=== PATIENT | female | born 1975 | race Caucasian/White ===

== ENCOUNTER 2017-04-05 18:43 | Observation (INO) | payer OTHER ==
[~2017-04-05] VITALS: Ht 165.1 cm; Wt 95.1 kg
[~2017-04-05 18:43] MED LIST: ALEVE220 M2 PO; AMBIEN5 MG PO; B-125000 MCG PO; BUTALB-APAP-CA1 EACH PO; CIPRO500 MG PO; CITALOPRAM HBR20 MG PO; COMPAZINE10 MG PO; CRANBERRY200 MG PO; Dilaudid PO; ELAVIL25 MG PO; FLOMAX0.4 MG PO; INDERAL60 MG PO; MAXALT10 MG PO; MECLIZINE HCL25 M3 PO; MEDROL DOSEPAK4 MG PO; MEGA MULTIVITA1 EAC2 PO; METHOCARBAMOL750 MG PO; NAPROXEN500 MG PO; NEURONTIN300 MG PO; PEPTO BISMOL240 ML PO; PERCOCET 5/31 TABLET PO; POTASSIUM GLUCO2 MEQ PO; PREVACID15 MG PO; PRILOSEC10 MG PO; PRILOSEC40 MG PO; PROMETHAZINE HC25 M1 PO; Percocet 7.5/325,End PO; SUMATRIPTAN SUC50 MG PO; TORADOL10 MG PO; TRAMADOL-ACETA1 EACH PO; ULTRAM50 MG PO; VALIUM5 MG PO; VITAMIN C1000 MG PO; VITAMIN D-32000 UNI1 PO; VITAMIN D1000 INTUN PO; ZOFRAN4 MG PO; ZOLPIDEM TARTRA10 MG PO
[2017-04-05 19:14] LABS: HEMATOCRIT 41.9 % (36.0-46.0); MCH 30.9 PG (29.0-34.0); MCHC 34.8 G/DL (30.0-36.0); MCV 88.6 FL (83-99); MEAN PLAT.VOLUME 9.3 uM^3 (9.5-12.4); PLATELET COUNT 350 K/uL (156-360); RBC DIS.WIDTH-CV 11.8 % (11.8-14.6); RBC DIS.WIDTH-SD 38.2 % (39-53); RED BLOOD COUNT 4.73 M/uL (3.80-5.20); WHITE BLOOD COUNT 6.9 K/uL (4.1-10.2)
[2017-04-05 19:22] LABS: CHLORIDE 104 mEq/L (99-109); POTASSIUM 3.6 mEq/L (3.7-5.4); SODIUM 140 mEq/L (136-147)
[2017-04-05 19:24] LABS: GLUCOSE 154 mg/dL (70-99)
[2017-04-05 19:25] LABS: ANION GAP 12 MEQ/L (2-14)
[2017-04-05 19:28] LABS: GFR ESTIMATE (CALCULATED) > 59 mL/min/
[2017-04-05 19:29] LABS: UREA NITROGEN (BUN) 8 mg/dL (9-23)
[2017-04-05 19:35] LABS: TROP-I INTERPRETATION NEGATIVE; TROPONIN-I < 0.01 ng/mL (0.0-0.30)
[2017-04-05 19:54] LABS: D-DIMER ELISA < 150.00 ng/mLDDU (<230)
[2017-04-05] MEDS ORDERED: FLUARIX QU60 MCG/0.4 IM (20:35)
[2017-04-05] MEDS ORDERED: VITAMIN D2000 UNIT PO (20:35)
[2017-04-05] MEDS ORDERED: IMITREX25 MG PO (20:36)
[2017-04-05] MEDS ORDERED: IMITREX100 MG PO (20:36)
[2017-04-05] MEDS ORDERED: SUMATRIPTA4 MG/0.5 M SC (20:36)
[2017-04-05] MEDS ORDERED: ELAVIL100 MG PO (20:37)
[2017-04-05] MEDS ORDERED: ATARAX,VISTARIL25 MG PO (20:37)
[2017-04-05] MEDS ORDERED: VOLTAREN50 MG PO (20:37)
[2017-04-05] MEDS ORDERED: GAS-X125 MG PO (20:38)
[2017-04-05] MEDS ORDERED: LEVSIN-SL0.125 MG PO (20:38)
[2017-04-05] MEDS ORDERED: IMODIUM A-D2 M2 PO (20:38)
[2017-04-05] MEDS ORDERED: APRESOLINE10 MG PO (20:38)
[2017-04-05] MEDS ORDERED: PEPTO BISMOL240 ML PO (20:39)
[2017-04-05] MEDS ORDERED: MECLIZINE HCL25 MG PO (20:39)
[2017-04-05] MEDS ORDERED: KETOCONAZOLE120 ML TP (20:39)
[2017-04-05 21:57] VITALS: BP 169/93
[2017-04-05 23:51] VITALS: BP 155/84
[2017-04-06 03:46] VITALS: BP 141/91
[2017-04-06 05:28] LABS: TROP-I INTERPRETATION NEGATIVE; TROPONIN-I < 0.01 ng/mL (0.0-0.30)
[2017-04-06 05:40] LABS: HDL CHOLESTEROL 33 MG/DL (Desirable>=50); LDL CHOLESTEROL 93 mg/dL (Desirable<100); NON-HDL CHOLESTEROL 141 mg/dL (Desirable<160); TOTAL CHOLESTEROL 174 mg/dL (Desirable<200); TRIGLYCERIDES 239 MG/DL (Normal: <150)
[2017-04-06 07:51] VITALS: BP 146/101
[2017-04-06 10:48] VITALS: BP 159/99
== END 2017-04-06 12:22 | disposition home or self-care (01) ==
LOC: EME 18:43 → EDOF 20:48 → 5WEST 20:48 → EDOF 20:48 → ENRESERV 20:52 → 5WEST 21:42
PROVIDERS: Emergency Medicine; Physician Assistant Medical
DX: R07.89 Other chest pain (principal); G43.909 Migraine, unspecified, not intractable, without status migrainosus; I10 Essential (primary) hypertension; E66.9 Obesity, unspecified; Z68.34 Body mass index [BMI] 34.0-34.9, adult; E28.2 Polycystic ovarian syndrome; K58.9 Irritable bowel syndrome, unspecified; Z87.09 Personal history of other diseases of the respiratory system; K21.9 Gastro-esophageal reflux disease without esophagitis; Z79.82 Long term (current) use of aspirin; Z83.79 Family history of other diseases of the digestive system; Z87.442 Personal history of urinary calculi; Z82.49 Family history of ischemic heart disease and other diseases of the circulatory system; Z91.040 Latex allergy status; Z88.0 Allergy status to penicillin
CPT/HCPCS: 71020; 80048; 80061; 84484; 85027; 85379; 93005; 94640; 99281; 99285; G0378; J7030; Q0177

== ENCOUNTER 2017-08-09 06:05 | Emergency (ER) | payer OTHER ==
[~2017-08-09] VITALS: Ht 165.1 cm; Wt 94.7 kg
[~2017-08-09 06:05] MED LIST changes: +APRESOLINE10 MG PO; +ATARAX,VISTARIL25 MG PO; +ELAVIL100 MG PO; +FLUARIX QU60 MCG/0.4 IM; +GAS-X125 MG PO; +IMITREX100 MG PO; +IMITREX25 MG PO; +IMODIUM A-D2 M2 PO; +KETOCONAZOLE120 ML TP; +LEVSIN-SL0.125 MG PO; +MECLIZINE HCL25 MG PO; +SUMATRIPTA4 MG/0.5 M SC; +VITAMIN D2000 UNIT PO; +VOLTAREN50 MG PO
[2017-08-09 07:09] LABS: BASOPHIL (%) 0.5 % (0-1); EOSINOPHIL (%) 2.5 % (0-5); EOSINOPHIL COUNT 0.2 K/uL (0-0.3); HEMATOCRIT 40.5 % (36.0-46.0); HEMOGLOBIN 14.2 G/DL (11.9-15.5); IMMATURE GRANULOCYTE (%) 0.3 % (0.0-0.7); LYMPHOCYTE (%) 26.9 % (15-42); LYMPHOCYTE COUNT 1.6 K/uL (1.0-2.8); MCH 31.9 PG (29.0-34.0); MCHC 35.1 G/DL (30.0-36.0); MONOCYTE (%) 8.7 % (3-12); MONOCYTE COUNT 0.5 K/uL (0-0.8); NEUTROPHIL (%) 61.1 % (45-76); NEUTROPHIL COUNT 3.7 K/uL (1.8-6.4); PLATELET COUNT 300 K/uL (156-360); RBC DIS.WIDTH-CV 12.3 % (11.8-14.6); RBC DIS.WIDTH-SD 40.5 % (39-53); RED BLOOD COUNT 4.45 M/uL (3.80-5.20); WHITE BLOOD COUNT 6.1 K/uL (4.1-10.2)
[2017-08-09 07:36] LABS: TROP-I INTERPRETATION NEGATIVE; TROPONIN-I < 0.01 ng/mL (0.0-0.30)
[2017-08-09 08:09] LABS: CHLORIDE 102 MEQ/L (99-109); CREATININE 0.8 MG/DL (0.6-1.3); GFR ESTIMATE (CALCULATED) > 59 mL/min/; GLUCOSE 253 mg/dL (70-99); POTASSIUM 3.7 MEQ/L (3.7-5.4); SODIUM 137 MEQ/L (136-147); UREA NITROGEN (BUN) 10 mg/dL (9-23)
[2017-08-09 10:15] VITALS: BP 132/87
== END 2017-08-09 10:16 | disposition home or self-care (01) ==
LOC: EME 06:05
PROVIDERS: Emergency Medicine
DX: F41.9 Anxiety disorder, unspecified (principal); R07.89 Other chest pain; F60.9 Personality disorder, unspecified; J45.909 Unspecified asthma, uncomplicated; K21.9 Gastro-esophageal reflux disease without esophagitis; K58.9 Irritable bowel syndrome, unspecified; I25.2 Old myocardial infarction; G43.909 Migraine, unspecified, not intractable, without status migrainosus; Z87.442 Personal history of urinary calculi; Z87.891 Personal history of nicotine dependence; Z88.0 Allergy status to penicillin; Z91.040 Latex allergy status
CPT/HCPCS: 71045; 80048; 84484; 85025; 90839; 93005; 99281; 99285

== ENCOUNTER 2017-10-28 05:18 | Emergency (ER) | payer OTHER ==
[~2017-10-28] VITALS: Ht 165.1 cm; Wt 96.1 kg
[2017-10-28 07:26] VITALS: BP 150/94
== END 2017-10-28 07:28 | disposition home or self-care (01) ==
LOC: EME 05:18
DX: S51.012A Laceration without foreign body of left elbow, initial encounter (principal); S50.12XA Contusion of left forearm, initial encounter; S50.812A Abrasion of left forearm, initial encounter; W25.XXXA Contact with sharp glass, initial encounter; Y00.XXXA Assault by blunt object, initial encounter; Z23 Encounter for immunization; J45.909 Unspecified asthma, uncomplicated; K21.9 Gastro-esophageal reflux disease without esophagitis; K58.9 Irritable bowel syndrome, unspecified; R53.82 Chronic fatigue, unspecified; G43.909 Migraine, unspecified, not intractable, without status migrainosus; I25.2 Old myocardial infarction; Z87.442 Personal history of urinary calculi; Z88.0 Allergy status to penicillin; Z91.040 Latex allergy status; Z88.8 Allergy status to other drugs, medicaments and biological substances
CPT/HCPCS: 73090; 99281; 99284